=== PATIENT | male | born 1980 | race Caucasian/White ===

== ENCOUNTER 2018-08-28 17:49 | Emergency (ER) | payer MEDICAID, SELFPAY ==
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
[2018-08-28] MEDS: Omnipaque 350 MG/ML 100 ML BTL IJ (18:48)
[2018-08-28 18:57] LABS: Abs Immature Grans 0.01 k/cumm (0.0-0.09); Absolute Basophil Count 0.03 k/cumm (0.0-0.2); Absolute Eosinophil Count 0.18 k/cumm (0.0-0.7); Absolute Lymphocyte Count 2.87 k/cumm (1.2-3.4); Absolute Monocyte Count 0.56 k/cumm (0.11-0.7); Absolute Neutrophil Count 6.62 k/cumm (1.2-6.7); Basophils % 0.3; Eosinophils % 1.8; HGB 14.2 g/dL (13.5-17.5); Immature Grans % 0.1; Lymphocytes % 27.9; Mean Corp. HGB Concentration 34.6 g/dL (32.0-36.0); Mean Corpuscular Volume 83.7 fL (80-95); Mean Platelet Volume 10.3 fL (8.0-11.0); Monocytes % 5.5; Neutrophils % 64.4; Platelet Count 205 x1000/uL (130-400); RBC Distribution Width 13.4 % (11.8-14.1); White Blood Cell Count 10.27 k/cumm (4.4-10.8)
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
[2018-08-28 19:16] LABS: ALT 21 U/L (12-78); AST 15 U/L (15-37); Albumin 3.8 g/dL (3.4-5.0); Alkaline Phosphatase 83 U/L (46-116); Anion Gap 6.4 mmol/L (3-11); BUN 11 mg/dL (7-18); Bilirubin, Total 0.4 mg/dL (0.2-1.0); CO2 26.6 mmol/L (21.0-32.0); CREATININE 0.87 mg/dL (0.70-1.30); Calcium 8.6 mg/dL (8.5-10.1); Chloride 102 mmol/L (98-107); Glucose 87 mg/dL (70-100); Lipase 62 U/L (73-393); Potassium 3.3 mmol/L (3.5-5.1); Sodium 135 mmol/L (136-145)
[2018-08-28 19:19] LABS: Troponin I < 0.02 ng/mL (0.00-0.06)
[2018-08-28 19:49] VITALS: PULSE 54; RESP 16; TEMP 37; O2SAT 98
[2018-08-28] MEDS: Ibuprofen 800 MG TAB PO (19:52)
[2018-08-28] MEDS: Potassium Chloride 20 MEQ TABCR 40 MEQ PO (19:52)
[2018-08-28] MEDS: Acetaminophen 500 MG TAB 1000 MG PO (20:14)
[2018-08-28] MEDS: Lidocaine 5% Patch 1 PATCH TP (20:14)
[2018-08-28 20:40] VITALS: BP 123/84; PULSE 57; RESP 18; O2SAT 97
== END 2018-08-28 20:40 | disposition home or self-care (01) ==
PROVIDERS: Emergency Provider Student in an Organized Health Care Education/Training Program; PCP Physician Assistant
DX: S29.012A Strain of muscle and tendon of back wall of thorax, initial encounter (principal); M54.2 Cervicalgia; S39.012A Strain of muscle, fascia and tendon of lower back, initial encounter; R07.89 Other chest pain; M25.522 Pain in left elbow; V63.5XXA Driver of heavy transport vehicle injured in collision with car, pick-up truck or van in traffic accident, initial encounter
CPT/HCPCS: 36415; 74177; 80053; 83690; 86850; 86900; 86901; 99285; 70450; 71260; 72125; 72128; 72131; 73080; 84484; 85025; 99284; J3490